=== PATIENT | female | born 1940 | race Caucasian/White ===

== ENCOUNTER → 2016-09-16 | Outpatient (CLI) | payer MEDICARE ==
[~2016-09-16] MED LIST: CIPRO PO; SIMVASTATIN20 MG PO
--- NOTE | ~2016-09-16 | MR113 ---
[facility] A Service of [facility] & [facility] RADIOLOGY TEXT RESULTS PATIENT: MOISES VIDALES LOCATION: [facility] : 44 UNIT #: [id number] AGE: [address]: SUSHILA VENTURA SEX: F ORDER DR: [id number] [facility] [address] [place], [place] [address] [id number] O MR#: [id number] Acc #: [id number] NAME: MOISES VIDALES. : 1940 SEX: F STUDY DATE/TIME: 09/16/2016 19:41 UNIT: [facility] ROOM: STUDY DESCRIPTION: MR Lumbar Wo Contrast Attending Physician: Sushila Ventura M.D. Ordering Physician: Physician Non-Staff Primary Care Physician: Estee Oneil A.P.R.N. MRI CENTER REPORT This report is preliminary unless electronic signature is present. EXAM Lumbar spine MRI without. HISTORY Low-back pain with radiculopathy, transverse low-back pain since the end of July 2016 with severe pain into the right leg to the level of her foot. No known injury. History of bursitis in her hips. No cancer history. COMMENT MRI of the lumbar spine performed without noncontrast using routine 1.5T imaging technique. There is a comparison study from 09/29/2008. Spine is numbered assuming lowest axial imaging at L5-S1 and this is based on plain films from 04/16/2016. Using this numbering, the L5-S1 intervertebral disc is mildly hypoplastic and the conus medullaris terminates at about L1-2. The conus is normal in size, contour, and signal intensity. Bone marrow signal intensity is unremarkable allowing for mild marrow endplate degenerative change, most apparent at T11-12 anteriorly with some anterior endplate spondylosis at this level. Mild intervertebral disc desiccation, most apparent at L4-5. At L1-2, there is no canal or foraminal impingement. Minor concentric disc bulge. At L2-3, there is mild bilateral facet hypertrophy and ligamentum flavum thickening. Minor concentric disc bulge. No canal or foraminal impingement. At L3-4, mild bilateral facet degenerative change and ligamentum flavum thickening. Minor broad-based posterior disc bulge but no canal or foraminal impingement. [facility]. [facility] A Service of [facility] RADIOLOGY TEXT RESULTS PATIENT: MOISES VIDALES [facility] UNIT #: [id number] AGE: [address]: SUSHILA VENTURA SEX: F ORDER DR: At L4-5, mild bilateral facet degenerative change and ligamentum flavum thickening with broad-based posterior protrusion/small extrusion most focal centrally with tiny annular fissure and slight caudad extension from the level of the disc while remaining contiguous with it. There is mass effect on the anterior thecal sac and left greater than right lateral recess with very mild canal stenosis. Please correlate for clinical evidence of left-side L5 radicular symptoms. No foraminal impingement. On sagittal imaging, the extrusion is about 1 cm SI dimension, 0.4 cm AP dimension. On comparison to prior, mild increase in mass effect on the thecal sac and the lateral recesses since 2008. At L5-S1, no significant abnormality. IMPRESSION Lumbar degenerative change detailed above most significant appearing radiographically at the L4-5 level, where there is a small disc extrusion with facet degenerative change. There is mass effect on the left greater than right lateral recess expected location of the left L5 root and very mild canal stenosis. Please correlate with radicular symptoms. There was degenerative disc disease at this level previously, but the mass effect is mildly increased. Dictated by... Dinah Powell M.D. THIS IS AN ELECTRONICALLY VERIFIED REPORT Dinah Powell M.D. at 09/17/2016 4:43 PM SAC/ariadna TD: 09/17/2016 11:46 JOB #: [id number] MRI CENTER REPORT COPY
== END | disposition home or self-care (01) ==
LOC: CMRI 18:29
DX: M54.16 Radiculopathy, lumbar region (principal); M51.16 Intervertebral disc disorders with radiculopathy, lumbar region; M47.26 Other spondylosis with radiculopathy, lumbar region; M48.06 Spinal stenosis, lumbar region
CPT/HCPCS: 72148